=== PATIENT | female | born 1975 | race Caucasian/White ===

== ENCOUNTER 2021-12-12 15:15 | Emergency (ER) | payer BC ==
[2021-12-12] MEDS ORDERED: DOXYCYCLINE HY100 M2 PO (15:38)
[2021-12-12 15:53] LABS: HEMOGLOBIN 14.5 gm/dl (12.3-15.3); RED BLOOD COUNT 4.6 M/UL (4.00-5.10); WHITE BLOOD COUNT 7.2 K/UL (4.5-11.0)
[2021-12-12 16:23] LABS: BUN/CREATININE RATIO 27 (0-10)
[2021-12-12] MEDS ORDERED: CEPHALEXIN500 M1 PO (18:14)
[2021-12-12] MEDS ORDERED: NAPROSYN500 MG PO (18:14)
[2021-12-12] MEDS ORDERED: ONDANSETRON ODT4 MG SL (18:14)
== END 2021-12-12 18:35 | disposition home or self-care (01) ==
LOC: ER1 15:15
PROVIDERS: Physician Assistant
DX: N39.0 Urinary tract infection, site not specified (principal)
CPT/HCPCS: 80053; 81001; 83690; 84703; 85025; 96374; 96375; 99284; J1885; J2270; J2405; J7030; Q9967